=== PATIENT | female | born 1950 | race Caucasian/White ===

== ENCOUNTER 2018-07-10 09:42 | Inpatient (IN) | payer OTHER ==
[2018-07-10] MEDS ORDERED: NS 1,000 ML IV ONE ×4 (10:33→21:00)
[2018-07-10] MEDS ORDERED: OSELTAMIVIR PHOSPHATE 75 MG CAP PO ONE (10:34)
--- NOTE | 2018-07-10 10:36 | EDPHY ---
H & P Time Seen by Provider: 07/10/18 10:16 HPI/ROS: Chief complaint. Cough, fever HPI. 68-year-old female 2 day history fever cough. Temperature yesterday 100.9. She also has a headache. She has had nausea vomiting but no diarrhea. Unsettled stomach but no abdominal pain. Some dyspnea on exertion. Myalgias. Exposure to Infectious Disease at work. Seen by PCP this morning positive flu test. ROS 10 systems were reviewed and negative with the exception of the elements mentioned in the history of present illness Past Medical/Surgical History: Hep C, kidney failure Social History: , nonsmoker, no alcohol Smoking Status: Former smoker Physical Exam: General Appearance: Alert well-developed female mild distress vital signs stable. Temp 37.3 degrees Eyes: Pupils equal and round no pallor or injection. ENT, tympanic membranes normal. Pharynx slightly injected without exudate. Mucous membranes dry Respiratory: No retractions. Inspiratory expiratory rhonchi Cardiovascular: Regular rate and rhythm. Gastrointestinal: Abdomen is soft and nontender, no masses, bowel sounds normal. Neurological: Awake and alert, sensory and motor exams grossly normal. Skin: Warm and dry, no rashes. Musculoskeletal: Neck is supple nontender. Extremities symmetrical, full range of motion. Psychiatric: Patient is oriented X 3, there is no agitation. Constitutional: Initial Vital Signs Temperature (C) 37.3 C 07/10/18 09:45 Heart Rate 95 07/10/18 09:45 Respiratory Rate 18 07/10/18 09:45 Blood Pressure 115/87 H 07/10/18 09:45 O2 Sat (%) 97 07/10/18 09:45 O2 Delivery Mode Room Air Allergies/Adverse Reactions: Iodinated Contrast- Oral and IV Dye Allergy (Verified 07/10/18 09:45) Home Medications: Medication Instructions Recorded Albuterol Hfa Anes Only [Proair 2 puffs IH QID PRN #1 mdi 07/10/18 Hfa Icu (*)] Oseltamivir Phosphate [Tamiflu 75 75 mg PO BID #10 cap 07/10/18 mg (*)] Medical Decision Making - Diagnostics Imaging Results: Imaging Impressions Chest X-Ray 07/10/18 10:24 Impression: Coarsened interstitial markings bilaterally, likely related to senescent changes and underlying interstitial fibrosis. Procedures: IV normal saline. Tamiflu ED Course/Re-evaluation: Recheck at 12:30 p.m. Patient and I discussed imaging and lab results. We discussed treatment plan including criteria for return importance of follow-up further evaluation. She expresses understanding and agreement Differential Diagnosis: Patient has influenza. No pneumonia. She is within the treatment window for Tamiflu - Data Points Laboratory Results: Laboratory Results 07/10/18 10:25 07/10/18 10:25 07/10/18 07/10/18 10:25 10:25 WBC 12.50 10^3/uL H 10^3/uL (3.80-9.50) RBC 5.57 10^6/uL H 10^6/uL (4.18-5.33) Hgb 16.2 g/dL g/dL (12.6-16.3) Hct 49.1 % H % (38.0-47.0) MCV 88.2 fL fL (81.5-99.8) MCH 29.1 pg pg (27.9-34.1) MCHC 33.0 g/dL g/dL (32.4-36.7) RDW 13.9 % % (11.5-15.2) Plt Count 259 10^3/uL 10^3/uL (150-400) MPV 9.4 fL fL (8.7-11.7) Neut % (Auto) 91.4 % H % (39.3-74.2) Lymph % (Auto) 4.2 % L % (15.0-45.0) [place] % (Auto) 3.8 % L % (4.5-13.0) Eos % (Auto) 0.0 % L % (0.6-7.6) Baso % (Auto) 0.3 % % (0.3-1.7) Nucleat RBC Rel Count 0.0 % % (0.0-0.2) Absolute Neuts (auto) 11.43 10^3/uL H 10^3/uL (1.70-6.50) Absolute Lymphs (auto) 0.53 10^3/uL L 10^3/uL (1.00-3.00) Absolute Monos (auto) 0.48 10^3/uL 10^3/uL (0.30-0.80) Absolute Eos (auto) 0.00 10^3/uL L 10^3/uL (0.03-0.40) Absolute Basos (auto) 0.04 10^3/uL 10^3/uL (0.02-0.10) Absolute Nucleated RBC 0.00 10^3/uL 10^3/uL (0-0.01) Immature Gran % 0.3 % % (0.0-1.1) Immature Gran # 0.04 10^3/uL 10^3/uL (0.00-0.10) RBC/WBC/PLT Morphology TNP Platelet Estimate TNP Sodium 137 mEq/L mEq/L (135-145) Potassium 4.0 mEq/L mEq/L (3.5-5.2) Chloride 102 mEq/L mEq/L (97-110) Carbon Dioxide 22 mEq/l mEq/l (22-31) Anion Gap 13 mEq/L mEq/L (6-14) BUN 16 mg/dL mg/dL (7-23) Creatinine 0.7 mg/dL mg/dL (0.6-1.0) Estimated GFR > 60 Glucose 116 mg/dL H mg/dL (70-100) Calcium 9.6 mg/dL mg/dL (8.5-10.4) Medications Given: Discontinued Medications Sodium Chloride (Ns) 1,000 mls @ 0 mls/hr IV EDNOW ONE; Wide Open PRN Reason: Protocol Stop: 07/10/18 10:34 Last Admin: 07/10/18 10:48 Dose: 1,000 mls Oseltamivir Phosphate (Tamiflu) 75 mg PO EDNOW ONE Stop: 07/10/18 10:35 Last Admin: 07/10/18 11:41 Dose: 75 mg Departure - Departure Disposition: Home, Routine, Self-Care Clinical Impression: Influenza Condition: Good Instructions: Influenza (ED) Additional Instructions: Drink plenty of fluids and stay hydrated Ibuprofen 400 mg every 6 hr for fever Tamiflu twice daily Albuterol inhaler using 2 puffs every 4 hr to help with breathing and cough Return for worsening symptoms Recheck in 2 days if not improving Referrals: Naye Pathak MD [Primary Care Provider] - 2-3 days, if not improved Prescriptions: Albuterol Hfa Anes Only [Proair Hfa Icu (*)] 2 puffs IH QID PRN #1 mdi PRN Reason: Short Of Breath/Dyspnea Oseltamivir Phosphate [Tamiflu 75 mg (*)] 75 mg PO BID #10 cap
[2018-07-10 10:44] LABS: PLATELET COUNT 259 10^3/uL (150-400)
[2018-07-10] MEDS ORDERED: IPRATROPIUM/ALBUTEROL 3 ML DEYVIAL ONE (12:53)
[2018-07-10] MEDS ORDERED: IPRATROPIUM/ALBUTEROL 3 ML DEYVIAL IH ONE (12:55)
--- NOTE | 2018-07-10 14:21 | PDGENHP ---
History and Physical History and Physical: CC: Reported influenza HISTORY: Patient sent in from her primary care clinic. She had presented to the primary care clinic today with acute URI type symptoms requesting to be admitted to the hospital and she was sent from the clinic to the hospital. Cough, myalgias, vague nausea but no vomiting, headache for 2 days. Patient states feeling short of breath but here in the ER has 97-100% oxygen saturation on room air with respiratory rate 16 per minute. Patient mentions fever but has normal temperatures in clinic today and for here also. Reportedly there was an influenza a test that was positive at the clinic today but that test is not visible in our system here even though her primary care is within the [facility]. She was initially seen in the ER and plans were to have her go home. Apparently however before leaving the ER after discharge orders, the patient got up and went to the bathroom and complained that there were cleaning chemicals in the air in the bathroom, and she came out of the bathroom yelling that she could not breathe. At that time her exam reportedly did not demonstrate rales or rhonchi and she had normal oxygen saturation and vital signs, though she did vomit at that time. It was felt she should be observed overnight here in the hospital She has declined flu shot this year and apparently has not ever had a flu shot ROS: A comprehensive 10 system review revealed no other significant findings PAST MEDICAL HISTORY: Hepatitis C status post 6 months of interferon in 2000 Tibia fracture Humerus fracture Irritable bowel syndrome "Neuro dermatitis" FAMILY MEDICAL HISTORY: Hyperlipidemia Prostate cancer Hepatitis Hypertension SOCIAL HISTORY: 2 children Former smoker Single Retired MEDICATIONS: The patients list has been reconciled by our clinical pharmacist in the EMR. I have reviewed the list and ordered appropriate medicines. PHYSICAL EXAMINATION: Vital Signs: Hand Miter Operator: Examination: General: alert, oriented, good mentation, relaxed Skin: warm, dry, good color, no rash HEENT: normal Neck: no mass or jvd Resps: relaxed Lungs: clear breath sounds Heart: regular, no murmur Abdomen: soft, nondistended, nontender, +BS, no mass Upper Extremities: normal Lower Extremities: no edema, warm No Bleeding or bruising Neurologic: normal speech/language, normal cable mechanic, no focal weakness IV site: looks normal LABORATORY DATA: Some increase in white blood cell count with increase in neutrophils otherwise unremarkable CBC Unremarkable metabolic panel RADIOLOGY STUDIES: I reviewed images from a chest x-ray done here today which shows hyperexpansion of lungs and changes in lung markings suggesting copd 12 LEAD EKG: ASSESSMENT: * Influenza a * dehydration/hypotension * Nausea vomiting * suspect copd based on hx of cigs and her CXR findings * Hx of treated chronic hep C * Hx of congenital atrophy of one kidney * hx of fx's of arm, leg * hx of IBS PLANS: * aggressive IV hydration * tamiflu * antiemetics * follow BPs closely; follow renal fx * follow resp status for any development of copd sxs * begin with obs status; if she does not improve to point of good BPs and able to hydrate orally may need to change to inpatient I have reviewed the patient's case in detail with Dr. Newby I have reviewed the patient's past medical records as part of this assessment, including outpatient clinic records
[2018-07-10] MEDS ORDERED: ZOLPIDEM TARTRATE 5 MG TAB PO PRN (14:22)
[2018-07-10] MEDS ORDERED: ONDANSETRON DISINTEGRATING 4 MG TAB ONE (14:41)
[2018-07-10] MEDS ORDERED: ONDANSETRON DISINTEGRATING 4 MG TAB PO ONE (14:43)
[2018-07-10] MEDS: ONDANSETRON 4 MG/2 ML VIAL IVP PRN (15:48)
[2018-07-10] MEDS: ACETAMINOPHEN 325 MG TAB PO PRN (17:48)
[2018-07-10] MEDS: OSELTAMIVIR PHOSPHATE 75 MG CAP PO SCH (18:30)
[2018-07-10] MEDS: MELATONIN 3 MG TAB PO SCH (20:20)
[2018-07-10] MEDS: guaiFENesin 600 MG TAB.ER PO PRN (22:34)
[2018-07-11] MEDS: IPRATROPIUM/ALBUTEROL 3 ML DEYVIAL IH PRN ×2 (03:28→09:59)
[2018-07-11] MEDS: guaiFENesin 600 MG TAB.ER PO PRN (09:53)
[2018-07-11] MEDS: OSELTAMIVIR PHOSPHATE 75 MG CAP PO SCH ×2 (09:53→18:56)
[2018-07-11] MEDS: ACETAMINOPHEN 325 MG TAB PO PRN (12:31)
[2018-07-11] MEDS: NS 1,000 ML IV SCH ×2 (12:32→16:59)
--- NOTE | 2018-07-11 13:44 | ASMTCMCOM ---
CM Note CM Note Notes: Pt is 68 yo F, presents with influenza. No therapies ordered, pt likely to be discharged independently. No CM needs identified at this time. CM available if needs arise. Plan: independent once medically stable. Date Signed: 07/11/2018 01:43 PM Electronically Signed By:JANE Banda
[2018-07-11] MEDS ORDERED: ALBUTEROL 3 ML DEYVIAL IH PRN (13:45)
[2018-07-11] MEDS ORDERED: NS 500 ML IV ONE (13:46)
--- NOTE | 2018-07-11 13:52 | HOSPPROG ---
Hospitalist Progress Note Assessment/Plan: DIAGNOSES: * Acute influenza a infection * Acute hypoxemic respiratory failure * Obstructive airway disease, question COPD verses new onset of asthma, with acute exacerbation due to flu (suspect COPD but she has minimal total smoking exposure, and in postmenopausal setting could be developing asthma) * Dehydration * Hypertension due to above * Nausea vomiting, improving so far today but no significant oral intake * History of chronic hepatitis C treated in the remote past * History of 1 atrophic nonfunctioning kidney * History of irritable bowel syndrome PLANS: * Add prednisone * Change DuoNeb to scheduled with p.r.n. Albuterol * Will begin Advair * Continue IV hydration, will give another fluid bolus now * Continue Tamiflu * Recheck renal function and follow that closely, recheck cell counts * P.r.n. Antiemetics * When she has completely resolved this episode, in the outpatient setting she should be seen by pulmonology for assessment of her underlying lung condition SUBJECTIVE: Feels wiped out, weak tired No pain Somewhat short of breath No appetite at all, new billing tiny bits of food, but no vomiting Had 1 loose stool today OBJECTIVE Vitals reviewed: Blood pressures remain slightly on the low side, intermittently tachycardic, no fever Remains hypoxemic needing 2-2.5 L oxygen Manager Massage Department, my review: Exam: alert oriented skin warm dry color ok resps not labored lungs clear BSs heart regular abd soft nondistended nontender, bowel sounds present limbs warm, no edema iv site ok Imaging: I reviewed today's repeat chest x-ray which shows again hyperexpansion, perhaps some slight increase in interstitial markings Lab data: Serology for RSV is negative Objective: Vital Signs Temp Pulse Resp BP Pulse Ox 36.9 C 101 H 18 91/60 L 97 07/11/18 11:44 07/11/18 11:44 07/11/18 11:44 07/11/18 11:44 07/11/18 11:44 07/10/18 07/11/18 07/12/18 06:59 06:59 06:59 Intake Total 450 Balance 450 - Time Spent With Patient Time Spent with Patient: greater than 35 minutes Time Spent with Patient: Greater than 35 minutes spent on this patients care, greater than 50% of time spent counseling, educating, and coordinating care regarding the above mentioned plan. ICD10 Worksheet Patient Problems: Problems Problem Status Onset Influenza Acute
[2018-07-11] MEDS: FLUTICASONE/SALMETER 250/50MCG DISKUS IH SCH ×2 (14:10→20:33)
[2018-07-11] MEDS: IPRATROPIUM/ALBUTEROL 3 ML DEYVIAL IH SCH ×2 (16:17→21:47)
[2018-07-11] MEDS: ONDANSETRON 4 MG/2 ML VIAL IVP PRN (16:58)
[2018-07-11] MEDS: predniSONE 20 MG TAB PO SCH (18:56)
--- NOTE | 2018-07-11 19:47 | PDMN ---
Medical Necessity Medical necessity: MCG MGSIC Systemic or Infectious Condition: 68 yo presents w / URI s/sx w/ cough, myalgia, nausea and H/A w/ some SOB, dx w/ influenza, admitted OBS initially for workup/monitoring but pt developed acute hypoxemic resp failure during OBS care requiring oxygen, question COPD (new) vs. new asthma w acute exacerbation due to flu, developed hypotension 80s/50s w/ intermittent tachycardia >100. Pt cont to feel weak and SOB. Pt requires additional MN and meets IP criteria med nec for MGSIC w/ hemodynamic instability and hypoxemia requiring ongoing monitoring and tx with IVF, startup of nebs and steroids and pt cont to require IV antiemetics. Hx hep C s/p 6mo interferon 2000, IBS, neuro dermatitis, tibia and humerus fxs. Change to IP status 07/11/18@1330 per order.
[2018-07-11] MEDS: MELATONIN 3 MG TAB PO SCH (21:27)
[2018-07-12] MEDS: NS 1,000 ML IV SCH ×2 (06:02→19:14)
[2018-07-12] MEDS: IPRATROPIUM/ALBUTEROL 3 ML DEYVIAL IH SCH ×4 (06:08→22:46)
[2018-07-12] MEDS: FLUTICASONE/SALMETER 250/50MCG DISKUS IH SCH ×3 (09:22→22:45)
[2018-07-12] MEDS: OSELTAMIVIR PHOSPHATE 75 MG CAP PO SCH ×2 (09:30→18:03)
[2018-07-12] MEDS: predniSONE 20 MG TAB PO SCH ×2 (09:30→18:03)
--- NOTE | 2018-07-12 15:05 | HOSPPROG ---
Hospitalist Progress Note Assessment/Plan: #Influenza A #Acute Hypoxic Respiratory Failure #Dehydration and hypotension #Acute Bronchitis #Nausea and vomiting Plan: cont Tamiflu cont steroids decrease IVF, she is hesitant to stop as she does not want to become hypotensive home meds bronchodilator hopefully home tomorrow Subjective: still with cough and some sob. afebrile Objective: Vital Signs Temp Pulse Resp BP Pulse Ox 36.9 C 87 18 123/84 H 96 07/12/18 11:19 07/12/18 11:53 07/12/18 11:53 07/12/18 11:19 07/12/18 11:53 07/11/18 07/12/18 07/13/18 05:59 05:59 05:59 Intake Total 250 980 Balance 250 980 - Physical Exam Constitutional: no apparent distress Eyes: PERRL, EOMI Ears, Nose, Mouth, Throat: moist mucous membranes Cardiovascular: regular rate and rhythym, No edema Respiratory: no respiratory distress, reduced air movement, expiratory wheeze Gastrointestinal: normoactive bowel sounds, soft, non-tender abdomen Skin: warm Neurologic: AAOx3 Psychiatric: interacting appropriately, not anxious, not encephalopathic Lymph, Heme, Immunologic: No petechiae ICD10 Worksheet Patient Problems: Problems Problem Status Onset Influenza Acute
[2018-07-12] MEDS: MELATONIN 3 MG TAB PO SCH (20:35)
[2018-07-13] MEDS: IPRATROPIUM/ALBUTEROL 3 ML DEYVIAL IH SCH ×4 (06:07→20:38)
[2018-07-13] MEDS: NS 1,000 ML IV SCH (08:10)
[2018-07-13] MEDS: predniSONE 20 MG TAB PO SCH ×2 (09:10→18:15)
[2018-07-13] MEDS: OSELTAMIVIR PHOSPHATE 75 MG CAP PO SCH ×2 (09:10→18:15)
[2018-07-13] MEDS: FLUTICASONE/SALMETER 250/50MCG DISKUS IH SCH ×2 (10:42→20:38)
--- NOTE | 2018-07-13 14:33 | HOSPPROG ---
Hospitalist Progress Note Assessment/Plan: #Influenza A #Acute Hypoxic Respiratory Failure #Dehydration and hypotension #Acute Bronchitis #Nausea and vomiting Plan: cont Tamiflu cont steroids, can taper on discharge. would taper trial off IVF home meds bronchodilator Now on RA. Still very symptomatic. Trial off IVF. Hopeful d/c tomorrow. pt aware and in agreement Subjective: + cough, dyspnea with exertion. afebrile. bp is better Objective: Vital Signs Temp Pulse Resp BP Pulse Ox 37.0 C 88 16 116/71 91 L 07/13/18 12:53 07/13/18 12:53 07/13/18 12:53 07/13/18 12:53 07/13/18 12:53 07/12/18 07/13/18 07/14/18 05:59 05:59 05:59 Intake Total 250 1880 Balance 250 1880 - Physical Exam Constitutional: no apparent distress Eyes: PERRL Ears, Nose, Mouth, Throat: moist mucous membranes Cardiovascular: regular rate and rhythym, No edema Respiratory: no respiratory distress, no rales or rhonchi, reduced air movement , expiratory wheeze Gastrointestinal: normoactive bowel sounds, soft, non-tender abdomen Skin: warm Neurologic: AAOx3 Psychiatric: interacting appropriately, not anxious, not encephalopathic Lymph, Heme, Immunologic: No petechiae ICD10 Worksheet Patient Problems: Problems Problem Status Onset Influenza Acute
--- NOTE | 2018-07-13 16:01 | ASMTCMCOM ---
CM Note CM Note Notes: Patient discussed in clinical rounds, she continues to experience shortness of breath. Plan for independent discharge to home on 07/14/18. Date Signed: 07/13/2018 04:01 PM Electronically Signed By:Humaira Mcdonough
[2018-07-13] MEDS: MELATONIN 3 MG TAB PO SCH (20:12)
[2018-07-14] MEDS: IPRATROPIUM/ALBUTEROL 3 ML DEYVIAL IH SCH ×4 (05:14→21:59)
[2018-07-14] MEDS: predniSONE 20 MG TAB PO SCH ×2 (08:01→18:35)
[2018-07-14] MEDS: OSELTAMIVIR PHOSPHATE 75 MG CAP PO SCH ×2 (08:01→18:35)
[2018-07-14] MEDS: FLUTICASONE/SALMETER 250/50MCG DISKUS IH SCH ×2 (08:02→21:59)
[2018-07-14] MEDS ORDERED: POLYETHYLENE GLYCOL 3350 17 GM PKT PO ONE (10:31)
--- NOTE | 2018-07-14 10:32 | HOSPPROG ---
Hospitalist Progress Note Assessment/Plan: 68 yo F with no significant PMH presenting with sob/n/v found to have influenza A # influenza A: patient remains very symptomatic despite relatively normal objective findings including vital signs and physical exam, she remains very weak, unable to eat very much and continues to complain of severe sob with exertion. Discussed getting moving more today and plan for dc in the am. # acute hypoxic respiratory failure: patient with only mild desaturations to 90 % on RA but very symptomatic with that, currently doing well on RA but again becomes very symptomatic and limited by that. Will continue current management as above. # n/v: this has largely resolved though patient notes she continues to have trouble tolerating much po, abd exam benign, has been constipated and suspect that is the underlying etiology, bowel protocol # hypovolemia: resolved, off IVF and doing well with oral intake # acute bronchitis: in setting of influenza, lungs sound clear today but patient with continued forceful exhaling and wheezing associated with that, query underlying vocal cord dysfunction or other etiology for her continued sxs , recommend f/u with pulmonary after dc # IP status Patient new to my care. Old records reviewed and summarized as above. Care plan reviewed with nursing. Subjective: no significant overnight events, patient notes she continues to feel 'terrible' and extremely short of breath, states her lungs continue to sound awful, she has not had fever or chills, not requiring o2, does not feel safe to go home where she lives alone Objective: Vital Signs Temp Pulse Resp BP Pulse Ox 36.9 C 73 16 137/84 H 92 07/14/18 07:28 07/14/18 07:28 07/14/18 07:28 07/14/18 07:28 07/14/18 07:28 07/13/18 07/14/18 07/15/18 05:59 05:59 05:59 Intake Total 1880 300 Balance 1880 300 awake alert anicteric mmm op clear rrr no mrg cta b, patient with upper airway breath sounds on forceful exhalation but no true wheezes/rales/rhonchi soft nt nd no cce warm dry well perfused oriented appropriate anxious - Time Spent With Patient Time Spent with Patient: greater than 35 minutes Time Spent with Patient: Greater than 35 minutes spent on this patients care, greater than 50% of time spent counseling, educating, and coordinating care regarding the above mentioned plan. ICD10 Worksheet Patient Problems: Problems Problem Status Onset Influenza Acute
[2018-07-14] MEDS ORDERED: LACTULOSE 20 GM/30 ML UDCUP PO PRN (18:11)
[2018-07-14] MEDS ORDERED: BISACODYL 10 MG SUPP PR PRN (18:11)
[2018-07-14] MEDS ORDERED: POLYETHYLENE GLYCOL 3350 17 GM PKT PO PRN (18:11)
[2018-07-14] MEDS ORDERED: MAGNESIUM HYDROXIDE 30 ML UDCUP PO PRN (18:11)
[2018-07-14] MEDS: MELATONIN 3 MG TAB PO SCH (20:04)
[2018-07-14] MEDS: SENNOSIDES/DOCUSATE SODIUM TAB PO SCH (20:04)
[2018-07-15] MEDS: IPRATROPIUM/ALBUTEROL 3 ML DEYVIAL IH SCH ×2 (04:57→10:17)
[2018-07-15] MEDS: OSELTAMIVIR PHOSPHATE 75 MG CAP PO SCH (09:11)
[2018-07-15] MEDS: predniSONE 20 MG TAB PO SCH (09:11)
[2018-07-15] MEDS: SENNOSIDES/DOCUSATE SODIUM TAB PO SCH (09:11)
[2018-07-15] MEDS: FLUTICASONE/SALMETER 250/50MCG DISKUS IH SCH (10:16)
--- NOTE | 2018-07-15 10:59 | PDDCSUM ---
Discharge Summary Discharge Summary: Dates of service 07/10-07/15/18 Consultations/procedures: none Hospital course by problem: 68 yo F with no significant PMH presenting with sob/n/v found to have influenza A # influenza A: patient with very severe sxs particularly sob with this, though vital signs relatively normal. She has improved significantly though still somewhat weak, she feels safe for discharge home, will f/u with her PCP in the coming week. Has completed course of tamiflu. # acute hypoxic respiratory failure: patient with only mild desaturations to 90 % on RA but very symptomatic with that, has improved overall, this is presumably 2/2 above as well as possible RAD versus acute bronchitis as below. # acute bronchitis versus post viral RAD: difficult to assess on exam as patient performs audible, forceful exhalations with significant upper airway sounds but overall lungs sound largely clear. She does note improvement with albuterol and advair and will dc with those as well as short prednisone taper. Recommend she f/u with pulmonary after discharge for PFT once she has improved from current illness. # n/v: largely resolved, tolerating PO though she notes her appetite is still not great # constipation: improved with bowel protocol # hypovolemia: resolved, off IVF and doing well with oral intake DC home f/u with PCP in coming week recommend f/u with pulmonary in 4-6 weeks for pulmonary function testing > 35 min spent in dc, more than half in counseling patient regarding f/u care plans
[2018-07-15 11:27] VITALS: BP 136/85
--- NOTE | 2018-07-15 12:30 | ASMTLACE ---
LACE Length of stay for Answers: 3 days current admission Comorbidities - select Answers: Mild liver or renal all that apply disease Other Notes: Hep C # of Emergency department Answers: 1-2 visits in the last 6 months Score: 7 Date Signed: 07/15/2018 12:30 PM Electronically Signed By:Lita Ann RN
== END 2018-07-15 13:56 | disposition home or self-care (01) | DRG 193 ==
LOC: INTOOBSV 14:01 → F1N 15:53 → OBSVTOIN 07-11 18:56
PROVIDERS: ADMIT Internal Medicine; ATTEND Internal Medicine
DX: J10.1 Influenza due to other identified influenza virus with other respiratory manifestations (principal); J20.9 Acute bronchitis, unspecified; J96.01 Acute respiratory failure with hypoxia; J45.909 Unspecified asthma, uncomplicated; E86.0 Dehydration; B18.2 Chronic viral hepatitis C; Q60.2 Renal agenesis, unspecified; E86.1 Hypovolemia; Z87.81 Personal history of (healed) traumatic fracture; Z87.891 Personal history of nicotine dependence
CPT/HCPCS: G0378; J2405; J7512; J7613